=== PATIENT | male | born 1990 | race African-American/Black ===

== ENCOUNTER 2022-07-10 17:10 | Emergency (ER) | payer MEDICAID ==
[~2022-07-10] VITALS: Ht 190.5 cm; Wt 96.0 kg
[2022-07-10 17:19] VITALS: BP 118/76
[2022-07-10] MEDS ORDERED: CEPH500C2 MT (18:31)
== END 2022-07-10 18:53 | disposition home or self-care (01) ==
LOC: ER 17:10
DX: S60.862A Insect bite (nonvenomous) of left wrist, initial encounter (principal); L03.116 Cellulitis of left lower limb; S80.262A Insect bite (nonvenomous), left knee, initial encounter; L03.114 Cellulitis of left upper limb; W57.XXXA Bitten or stung by nonvenomous insect and other nonvenomous arthropods, initial encounter; Y93.89 Activity, other specified; Y92.89 Other specified places as the place of occurrence of the external cause
CPT/HCPCS: 99283